=== PATIENT | male | born 1975 | race Caucasian/White ===

== ENCOUNTER 2019-02-28 12:33 | Emergency (ER) | payer SELFPAY ==
[2019-02-28 12:57] VITALS: BP 147/74
--- NOTE | 2019-02-28 13:46 | UC ---
HPI Wound/Suture Re-check - HPI Summary HPI Summary: Pt presents with request for suture removal. Pt was working in [place] and he cut leg on metal work box. He went to ER in [place] and had 8 sutures placed ~ 12 days ago. Pt has been keeping wound clean and dry, and pouring hydrogen peroxide on wound occasionally. Pt now c/o mild tenderness ant wound site and mild erythema around site. Pt was given tetanus booster at time of suture placement in [place]. - History Of Current Complaint Chief Complaint: UCLaceration Stated Complaint: REMOVE STITCHES Time Seen by Provider: 02/28/19 12:51 Hx Obtained From: Patient Onset/Duration: Sudden Onset Severity: Mild Pain Intensity: 0 - Allergies/Home Medications Allergies/Adverse Reactions: Allergies Allergy/AdvReac Type Severity Reaction Status Date / Time No Known Allergies Allergy Verified 02/28/19 12:50 PMH/Surg Hx/FS Hx/Imm Hx Previously Healthy: Yes - Surgical History Surgical History: None - Family History Known Family History: Positive: Cardiac Disease - Social History Occupation: Employed Full-time - self employed Lives: With Family Alcohol Use: Rare Substance Use Type: None Smoking Status (MU): Heavy Every Day Tobacco Smoker Type: Cigarettes Amount Used/How Often: 1 1/2 PPD Length of Time of Smoking/Using Tobacco: Since Age 14 Have You Smoked in the Last Year: Yes - Immunization History Most Recent Tetanus Shot: 02/16/19 Vaccination Up to Date: Yes Review of Systems All Other Systems Reviewed And Are Negative: Yes Constitutional: Positive: Negative Skin: Positive: Other - erythema, mild swelling, laceration with sutures intact on left lower anterior leg Eyes: Positive: Negative ENT: Positive: Negative Respiratory: Positive: Negative Cardiovascular: Positive: Negative Gastrointestinal: Positive: Negative Genitourinary: Positive: Negative Motor: Positive: Negative Neurovascular: Positive: Negative Musculoskeletal: Positive: Edema - mild swelling at laceration site, Myalgia Neurological: Positive: Negative Psychological: Positive: Negative Is Patient Immunocompromised?: No Physical Exam Triage Information Reviewed: Yes Appearance: Well-Appearing Vital Signs: Initial Vital Signs Temp 98.5 F 02/28/19 12:48 Pulse 95 02/28/19 12:48 Resp 18 02/28/19 12:48 BP 147/74 02/28/19 12:48 Pulse Ox 98 02/28/19 12:48 Vital Signs Reviewed: Yes Eye Exam: Normal ENT: Positive: Hearing grossly normal Neck exam: Normal Respiratory: Positive: No respiratory distress Musculoskeletal: Positive: Edema @ - mild swelling at laceration site Neurological Exam: Normal Psychological Exam: Normal Skin Exam: Other - mild erythema encirciling laceration site, c/o tenderness at site, 8 sutures intact in wound, no purulent discharge, mild swelling at laceration site. Course/Dx - Differential Dx - Laceration/Wound Differential Diagnoses: Cellulitis, Suture Removal - Diagnosis Provider Diagnosis: Wound infection, Visit for suture removal Discharge - Sign-Out/Discharge Documenting (check all that apply): Patient Departure All imaging exams completed and their final reports reviewed: No Studies - Discharge Plan Condition: Stable Disposition: HOME Prescriptions: Sulfamethox/Trimethoprim DS* [Bactrim DS 800/160 TAB*] 1 tab PO Q12H #20 tab Patient Education Materials: Cellulitis (ED), Stitches Removal (ED) Referrals: Hans Ross [Primary Care Provider] - If Needed - Billing Disposition and Condition Condition: STABLE Disposition: Home
== END 2019-02-28 13:43 | disposition home or self-care (01) ==
LOC: UCCORT 12:33
DX: W26.8XXA Contact with other sharp object(s), not elsewhere classified, initial encounter (principal); Y93.9 Activity, unspecified; Y92.89 Other specified places as the place of occurrence of the external cause; Z48.02 Encounter for removal of sutures; F17.210 Nicotine dependence, cigarettes, uncomplicated
CPT/HCPCS: 99202; G0463